=== PATIENT | male | born 1955 | race Caucasian/White ===

== ENCOUNTER 2017-01-06 00:21 | Inpatient (IN) | payer OTHER ==
[2017-01-06] VITALS (9 sets, daily range): BP systolic 121–169; BP diastolic 72–97; PULSE 89–105; TEMP 36.5–37.1; O2SAT 89–96; Ht 172.7 cm; Wt 75.6 kg
[~2017-01-06] VITALS: Ht 172.7 cm; Wt 75.6 kg
--- NOTE | 2017-01-06 00:33 | EMERGENCY ROOM VISIT NOTE ---
History Report prepared by Sarah Beth: Gabby Valverde Under the Supervision of: Kedar WiseO. First contact with patient: 00:24 Stated Complaint: RESP DISTRESS History of Present Illness The patient is a 61 year old male who presents to the Emergency Room with complaints of respiratory distress beginning shortly prior to arrival. Per EMS, the patient had 125 mg of Solu-Medrol and 2 nebulizer treatments. The patient reports that beginning 2 days ago, he had a scratchy throat and thought that he was coming down with a cold. He states that he also had a fever and a productive cough. He reports that he is a smoker and that he does not wear oxygen at home. The patient denies having a history of pneumonia and heart and kidney problems. Pt denies headache, change in vision, chest pain, nausea, vomiting, diarrhea, pain with urination, and melena. Source of History: patient Onset: shortly prior to arrival Position: other (global) Quality: other (respiratory distress ) Associated Symptoms: + fevers, + cough (productive), + chest pain, No headache, No melena, No diarrhea, No urinary symptoms Review of Systems See HPI for pertinent positives & negatives. A total of 10 systems reviewed and were otherwise negative. Past Medical & Surgical Medical Problems: (1) Respiratory failure, acute No pertinent medical history stated. Family History No pertinent family history stated. Social History Smoking Status: Current Every Day Smoker Current/Historical Medications Scheduled Doxycycline Hyclate (Doxycycline Hyclate), 100 MG PO BID Lisinopril (Lisinopril), 2.5 MG PO QAM Prednisone Tab (Prednisone), 10 MG PO UD Tiotropium [place] (Spiriva Handihaler), 2 PUFFS INH DAILY Scheduled PRN Albuterol Hfa (Ventolin Hfa), 2-4 PUFFS INH Q6H PRN for SOB/Wheezing Allergies Coded Allergies: No Known Allergies (Unverified , 01/06/17) Physical Exam Vital Signs Date Time Temp Pulse Resp B/P (MAP) Pulse Ox O2 Delivery O2 Flow Rate FiO2 01/06/17 01:41 94 21 94 Nasal Cannula 3.0 01/06/17 01:31 159/75 01/06/17 01:21 92 14 96 Nebulizer 5.0 01/06/17 01:12 156/82 01/06/17 01:00 93 Nasal Cannula 3.0 01/06/17 00:51 95 17 93 Nasal Cannula 2.0 01/06/17 00:36 91 Room Air 01/06/17 00:36 36.7 105 20 172/96 95 Nasal Cannula 2.0 01/06/17 00:35 103 01/06/17 00:35 91 Room Air 01/06/17 00:25 172/96 Physical Exam GENERAL: alert, uncomfortable appearing, well nourished, no distress, non-toxic EYE EXAM: normal conjunctiva, PERRL and EOM's grossly intact OROPHARYNX: no exudate, no erythema, lips, buccal mucosa, and tongue normal and mucous membranes are moist NECK: supple, no nuchal rigidity, no adenopathy, non-tender LUNGS: Diminished and coarse with bilateral expiratory wheezes. Normal chest wall mechanics HEART: Tachycardic, no murmurs, S1 normal and S2 normal ABDOMEN: abdomen soft, non-tender, normo-active bowel sounds, no masses, no rebound or guarding. BACK: Back is symmetrical on inspection and there is no deformity, no midline tenderness, no CVA tenderness. SKIN: no rashes and no bruising UPPER EXTREMITIES: upper extremities are grossly normal. LOWER EXTREMITIES: No pitting edema. NEURO EXAM: Normal sensorium, cranial nerves II-XII intact, normal speech, no weakness of arms, no weakness of legs. Medical Decision & Procedures ER Provider Diagnostic Interpretation: CHEST X-RAY 2 VIEWS: No cardiomegaly, no effusions, no wide mediastinum, no focal infiltrate, no pneumothorax. Laboratory Results Test 01/06/17 00:00 01/06/17 00:07 Urine Color DK YELLOW Urine Appearance CLOUDY (CLEAR) Urine pH 5.0 (4.5-7.5) Urine Specific [place] 1.023 (1.000-1.030) Urine Protein TRACE (NEG) Urine Glucose (UA) TRACE (NEG) Urine Ketones 1+ (NEG) Urine Occult Blood 1+ (NEG) Urine Nitrite NEG (NEG) Urine Bilirubin NEG (NEG) Urine Urobilinogen NEG (NEG) Urine Leukocyte Esterase SMALL (NEG) Urine WBC (Auto) >30 /hpf (0-5) Urine RBC (Auto) 5-10 /hpf (0-4) Urine Hyaline Casts (Auto) 0 /lpf (0-5) Urine Epithelial Cells (Auto) >30 /lpf (0-5) Urine Bacteria (Auto) NEG (NEG) Urine Pathogenic Casts /lpf (0) Influenza Type A (RT-PCR) Neg for Influ A (NEG) Influenza Type A Antigen Neg for Influ A (NEG) Influenza Type B Antigen Neg for Influ B (NEG) Influenza Type B (RT-PCR) Neg for Influ B (NEG) Prothrombin Time 10.5 SECONDS (9.0-12.0) Prothromb Time International Ratio 1.0 (0.9-1.1) Activated Partial Thromboplast Time 31.5 SECONDS (21.0-31.0) Partial Thromboplastin Ratio 1.2 Osmolality 284 mOsm/kg (280-300) Magnesium Level 2.2 mg/dl (1.8-2.4) Total Bilirubin 0.6 mg/dl (0.2-1) Aspartate Amino Transf (AST/SGOT) 29 U/L (15-37) Alanine Aminotransferase (ALT/SGPT) 34 U/L (12-78) Alkaline Phosphatase 48 U/L (45-117) Pro-B-Type Natriuretic Peptide 1215 pg/ml (0-900) Total Protein 8.3 gm/dl (6.4-8.2) Albumin 3.8 gm/dl (3.4-5.0) Globulin 4.5 gm/dl (2.5-4.0) Albumin/Globulin Ratio 0.8 (0.9-2) Free Thyroxine 1.02 ng/dl (0.80-1.60) Chemistry Specimen Hemolysis Date/Time Source Procedure Growth Status 01/06/17 00:00 Urine , Clean Catch Urine Culture - Final THREE TYPES OF ORGANISMS PRESENT, ALL... Complete Laboratory results per my review. Medications Administered Medications (Trade) Dose Ordered Sig/Nemo Route Start Time Stop Time Status Last Admin Dose Admin Albuterol/ Ipratropium (Duoneb) 3 ml NOW STAT INH 01/06/17 00:37 01/06/17 00:41 DC 01/06/17 01:12 3 ML Albuterol/ Ipratropium (Duoneb) 3 ml NOW STAT INH 01/06/17 01:36 01/06/17 01:37 DC 01/06/17 02:23 3 ML Levofloxacin (Levaquin / D5W) 750 mg NOW STAT IV 01/06/17 02:06 01/06/17 02:48 DC 01/06/17 03:04 750 MG ECG Indication: SOB/dyspnea Rate (beats per minute): 103 Rhythm: sinus tachycardia Findings: no acute ischemic change, no ectopy, other (normal axis, normal intervals, baseline artifact noted) ED Course 0025: The patient was evaluated in room B6. A complete history and physical exam was performed. 0037: Ordered Duoneb 3 ml INH. 0136: Ordered Duoneb 3 ml INH. 0200: The patient is moving more air and still has expiratory wheezes. I discussed results with him. 0206: Ordered Levofloxacin 750 mg IV. 0220: Upon reevaluation, the patient is resting. I discussed the findings and the treatment plan with the patient. He expresses agreement and understanding. I spoke with Dr. Sunshine of the [facility] Hospitalist Service. He will be evaluated for further management. Medical Decision Differential diagnosis: Etiologies such as infections, reactive airway disease, pneumonia, pneumothorax , COPD, CHF, cardiac ischemia, pulmonary embolism, musculoskeletal, gastrointestinal, as well as others were entertained. No evidence of overt CHF despite elevated BNP. No evidence of ACS. More likely COPD exacerbation given tobacco history. Pt improved with nebs here, given solumedrol by EMS. VS improved. Discussed need for additional evaluation and treatment, he verbalized understanding and was agreeable. Doubt bacteremia/sepsis, started on antibiotics due to sx and leukocytosis. Doubt dissection, tamponade, effusion, pneumothorax. Medication Reconcilliation Current Medication List: was personally reviewed by me Blood Pressure Screening Patient's blood pressure: Elevated blood pressure Blood pressure disposition: Referred to PCP Consults Time Called: [phone] Consulting Physician: Dr. Sunshine-[facility] Returned Call: [phone] I reviewed the patient's case with Dr. Sunshine. He will evaluate the patient for further management. Impression Primary Impression: COPD exacerbation Additional Impression: Elevated brain natriuretic peptide (BNP) level Scribe Attestation The scribe's documentation has been prepared under my direction and personally reviewed by me in its entirety. I confirm that the note above accurately reflects all work, treatment, procedures, and medical decision making performed by me. Departure Information Dispostion Being Evaluated By Hospitalist Prescriptions Albuterol Hfa (VENTOLIN HFA) 200 Puffs/96996 Mcg Aers 2-4 PUFFS INH Q6H Y for SOB/Wheezing, #1 INHALER Prov: Boyd High MD 01/07/17 Tiotropium B[place] (Spiriva Handihaler) 5 Puff/90 Mcg Aerp 2 PUFFS INH DAILY for 30 Days, #1 INHALER 1 Refill Prov: Boyd High MD 01/07/17 Doxycycline Hyclate (Doxycycline Hyclate) 100 Mg Cap 100 MG PO BID for 5 Days, #10 CAP Prov: Boyd High MD 01/07/17 Prednisone Tab (PREDNISONE) 10 Mg Tab 10 MG PO UD for 8 Days, #13 TAB Start taking 30mg for 2 days, then 20mg for 2 days, then 10mg for 2 days, then 5mg for 2 days and stop Prov: Boyd High MD 01/07/17 Lisinopril (Lisinopril) 5 Mg Tab 2.5 MG PO QAM for 30 Days, #15 TAB Prov: Boyd High MD 01/07/17 Referrals No Doctor, Assigned (PCP) Problem Qualifiers
[2017-01-06] MEDS ORDERED: ALBUT/IPRATROP 3MG/0.5MG NEB 3 ML VIAL INH STA ×2 (00:37→01:36)
[2017-01-06 00:50] LABS: BASO % 0.2 %; BASO ABS # 0.03 K/uL (0-0.2); COMPLETE YES; HEMATOCRIT 42.9 % (42-52); IG% 0.3 %; LYMPH % 15.1 %; LYMPH ABS # 2.12 K/uL (1.2-3.4); MEAN CELL VOLUME 98.2 fL (80-100); MEAN CORPUSCULAR HEMOGLOBIN 35.7 pg (25-34); MEAN CORPUSCULAR HGB CONC 36.4 g/dl (32-36); MEAN PLATELET VOLUME 9.5 fL (7.4-10.4); MONO % 7.8 %; NEUT % 74.6 %; PLATELET COUNT 229 K/uL (130-400); RED BLOOD COUNT 4.37 M/uL (4.7-6.1); WHITE BLOOD COUNT 14.06 K/uL (4.8-10.8)
[2017-01-06 00:59] LABS: PROTHROMBIN TIME (PATIENT) 10.5 SECONDS (9.0-12.0)
[2017-01-06 01:17] LABS: ALB/GLOB RATIO 0.8 (0.9-2); ALKALINE PHOSPHATASE 48 U/L (45-117); ALT/SGPT 34 U/L (12-78); AST/SGOT 29 U/L (15-37); BLOOD UREA NITROGEN 5 mg/dl (7-18); BUN/CREATININE RATIO 5.5 (10-20); CALCIUM 9.4 mg/dl (8.5-10.1); CARBON DIOXIDE 25 mmol/L (21-32); CHLORIDE 100 mmol/L (98-107); CREATININE 0.94 mg/dl (0.60-1.40); GLUCOSE 121 mg/dl (70-99); POTASSIUM 3.8 mmol/L (3.5-5.1); SODIUM 132 mmol/L (136-145)
[2017-01-06] MEDS ORDERED: LEVAQUIN 750MG / 150ML D5W IV STA (02:06)
[2017-01-06 02:35] LABS: PARTIAL THROMBOPLASTIN RATIO 1.2
[2017-01-06] MEDS ORDERED: SODIUM CHLORIDE 0.9% 500ML 500 ML IV ONE (03:00)
[2017-01-06] MEDS ORDERED: LEVALBUTEROL/IPRATROPIUM NEB INH SCH (03:00)
[2017-01-06] MEDS ORDERED: PNEUMOCOCCAL ADMINISTRATION CHARGE ONE (03:00)
[2017-01-06] MEDS ORDERED: ONDANSETRON INJ 2 MG/ML 2 ML VIAL IV PRN (03:00)
[2017-01-06] MEDS ORDERED: NITROGLYCERIN 0.4 MG SL PER TAB CHARGE SL PRN (03:00)
[2017-01-06] MEDS ORDERED: LEVALBUTEROL/IPRATROPIUM NEB INH PRN (03:00)
[2017-01-06] MEDS ORDERED: INFLUENZA ADMINISTRATION CHARGE ONE (03:00)
[2017-01-06] MEDS ORDERED: TRAMADOL HCL 50 MG TAB PO PRN (03:00)
[2017-01-06] MEDS ORDERED: ACETAMINOPHEN 325 MG TAB PO PRN (03:00)
[2017-01-06] MEDS ORDERED: PNEUMOCOCCAL POLYSACCHARIDES 25 MCG/0.5 ML VIAL/SYR IM. ONE (03:00)
[2017-01-06] MEDS ORDERED: INFLUENZA VIRUS QUAD VACCINE 0.5 ML SYR IM. ONE (03:00)
[2017-01-06 03:04] LABS: MAGNESIUM 2.2 mg/dl (1.8-2.4)
[2017-01-06 03:13] LABS: ARTERIAL BLD GAS O2 SATURATION 96.6 % (90-95); ARTERIAL BLOOD GAS BASE EXCESS -0.6 mEq/L (-9-1.8); ARTERIAL BLOOD GAS HCO3 23 mmol/L (19-24); ARTERIAL BLOOD GAS PO2 84 mm/Hg (80-95); ARTERIAL BLOOD GAS pH 7.45 (7.35-7.45)
[2017-01-06 03:19] LABS: ALLEN TEST POS (POS); O2 ADMINISTRATION 5 L
--- NOTE | 2017-01-06 03:42 | HISTORY & PHYSICAL EXAMINATION ---
DATE OF ADMISSION: 01/06/2017 PRIMARY CARE DOCTOR: None. CHIEF COMPLAINT: Shortness of breath. HISTORY OF PRESENT ILLNESS: History obtained from patient and ER physician. Medical history significant for borderline hypertension as per patient, ongoing tobacco abuse. Patient moved back to [place] in 2015. He was in [place], [place] for about 20 years prior. Few days history of nasal congestion, scratchy throat, cough productive of green sputum. Denies aspiration, fever at home, increasing shortness of breath. No chest pain. Denies fluid retention. Of note, shortness of breath on exertion, in the last few months. EMS gave patient Solu-Medrol for possible COPD exacerbation on route to the hospital. At the Emergency Room, patient received Levaquin and breathing treatments. MEDICAL HISTORY: As above. History of confinement for flu related illness in [place] about 20 years ago. Outpatient lung function tests not so normal as per patient. SURGICAL HISTORY: Cataract surgery. HOME MEDICATIONS: None. ALLERGIES: No known drug allergies. FAMILY HISTORY: Diabetes. PERSONAL AND SOCIAL HISTORY: 40-pack years. Occasional alcoholic beverage intake. 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 REVIEW OF SYSTEMS: As per HPI, all other ROS negative. LABORATORY DATA: Hg 15.6, hematocrit 42.9, white cell count 14, platelets 229. Sodium 131, chloride 100, CO2 25, BUN 5, creatinine 0.8, glucose 121. Chest x-ray as per my interpretation, hyperinflation, prominent pulm vasculature. EKG as per interpretation sinus tachycardia, LAE, no ischemia ASSESSMENT: 1. Acute hypoxemic failure secondary to complicated bronchitis, possible exacerbation of undiagnosed chronic obstructive pulmonary disease, ongoing tobacco abuse 2. possible sepsis 2 to above 3. borderline hypertension as per patient likely chronic with LAE on on EKG. PLAN: PCU supplemental O2 baseline ABG CS. Check lactic acid. Doxycycline, nebs, steroids Pulmonary consult, respiratory failure. Nicotine patch TTE RE Shortness of breath. ro pulmonary hypertension Initiate low dose APURVA inhibitor for hypertension Nicotine patch. DVT prophylaxis Lovenox subQ. Full code. MTDD
[2017-01-06] MEDS ORDERED: DOXYCYCLINE IV 100 MG in DEXTROSE 5% 100ML 100 ML IV ONE (04:30)
[2017-01-06] MEDS ORDERED: LEVALBUTEROL 1.25MG/0.5ML NEB INH PRN (04:45)
[2017-01-06] MEDS ORDERED: IPRATROPIUM BROMIDE NEB SOLN 0.02% 2.5 ML VIAL INH PRN (04:45)
[2017-01-06] MEDS ORDERED: LISINOPRIL 2.5 MG TAB PO ONE ×2 (05:22→14:00)
[2017-01-06] MEDS: ENOXAPARIN 40 MG/0.4 ML SYR SC SCH (06:12)
--- NOTE | 2017-01-06 06:43 | DIAGNOSTIC IMAGING REPORT ---
CHEST ONE VIEW PORTABLE CLINICAL HISTORY: Shortness of breath COMPARISON STUDY: No previous studies for comparison. FINDINGS: The patient appears hyperinflated. There is no focal pulmonary consolidation. There is no failure. There are no pleural effusions.[ IMPRESSION: Hyperinflation. No evidence of focal pulmonary consolidation. Electronically signed by: Alejandro Taylor M.D. 01/06/2017 6:42 AM Dictated Date/Time: 01/06/2017 6:41 AM
[2017-01-06] MEDS: IPRATROPIUM BROMIDE NEB SOLN 0.02% 2.5 ML VIAL INH SCH ×3 (07:27→19:08)
[2017-01-06] MEDS: LEVALBUTEROL 1.25MG/0.5ML NEB INH SCH ×3 (07:27→19:08)
[2017-01-06] MEDS: NICOTINE 21 MG/24 HR TDSY TD SCH (07:54)
[2017-01-06 08:35] LABS: SODIUM 133 mmol/L (136-145)
[2017-01-06 08:35] LABS: INFLUENZA A PCR Neg for Influ A (NEG); INFLUENZA B PCR Neg for Influ B (NEG)
--- NOTE | 2017-01-06 10:02 | Pulmonary Consultation ---
History General Date of Service: Jan 06, 2017. Stated Complaint: Respiratory Failure, Acute HPI The patient is a 61 year old male who presents to [facility] with complaints of Respiratory Failure, Acute. The patient's primary care provider is No Doctor, Assigned. Mr. Romero is a 61-year-old male who presented to the ER with complaints of respiratory distress the patient prior to arrival. EMS was called and patient was given IV Solu-Medrol and 2 nebulizer treatments. He states he states that his symptoms started 2 days ago which initially started as a scratchy throat. He thought that he was having upper respiratory symptoms like a "cold", and was associated with the subjective fever, productive cough with yellowish sputum, increased shortness of breath and dyspnea on exertion. He states that he did recently visit his parents in [facility] and drove about [address] he visited them in [place]. He mowed the grass at the family property and felt his chest felt different after that. He denies any hemoptysis or chest pain. He does admit to pleuritic chest pain with coughing. He denies any PND, orthopnea or lower extremity edema swelling. He does admit to being more short of breath over the last several months associated with mild dyspnea on exertion. He denies sick contacts. He is is a active current smoker. He denies any history of COPD the past and has no respiratory limitations. He does not see a rug scratcher and is not on any inhaled corticosteroids and bronchodilators. He denies daytime somnolence or increased lethargy. He denies any significant weight gain or fatigue. Vital signs on admission showed a temperature 36.7, pulse of 105, respiratory rate of 20, blood pressure 172/96, pulse ox on room air was 91 which improved to 95 with 2 L nasal cannula. Laboratory data reviewed. His white blood count 14, hemoglobin of 15, platelet count of 229 (neutrophils 74, lymphocytes 15.1). Chemistry shows sodium of 132 , potassium 3.8, chloride 100, carbon dioxide 25, BUN 5, creatinine 0.94, glucose 121, calcium 9.4, mag 2.2, total bili 0.6, AST 29, ALC 34, and alkaline phosphatase 48. His troponin less than 0.015, BNP 1215, total protein 8.3, albumin 3.8. His TSH is 8.3, free T4 102. PT of 10.5, INR 1, PTT of 31.5. Chest x-ray was done and showed hyperinflation with no focal infiltrates.Blood cultures were sent and are pending. Sputum culture ordered and pending. Influenza A and B serology were negative. In the ER he received albuterol/ipratropium nebulizer 2, Levaquin 750 mg IV influenza as well as pneumococcal vaccine. He was admitted for COPD exacerbation. Historian: patient Past Medical History Past Medical History: No significant past medical history. Past Surgical History: Cataract surgery Family History Family history significant for diabetes Social History His history of 40 pack years smoking tobacco. He denies any illicit drug use. 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 He lives in [place], [place] for many years. Lives independently in 2016. Hx Tobacco Use In Past Year?: Yes Smoking Status: Current Every Day Smoker Allergies Coded Allergies: No Known Allergies (Unverified , 01/06/17) Current Medications Reported Home Medications Medications Dose Route/Sig Max Daily Dose Days Date Category No Active Prescriptions or Reported Medications Rx Physical Physical Exam Vital Signs: Date Time Temp Pulse Resp B/P (MAP) Pulse Ox O2 Delivery O2 Flow Rate FiO2 01/06/17 07:48 36.9 89 20 169/79 (109) 94 Nasal Cannula 2.0 01/06/17 07:36 92 92 96 Nasal Cannula 3.0 01/06/17 04:20 37.1 95 16 169/75 92 Nasal Cannula 3.0 01/06/17 03:33 89 18 163/81 94 Nasal Cannula 3.0 01/06/17 02:26 88 17 164/85 91 Nasal Cannula 3.0 01/06/17 01:41 94 21 94 Nasal Cannula 3.0 01/06/17 01:31 159/75 01/06/17 01:21 92 14 96 Nebulizer 5.0 01/06/17 01:12 156/82 01/06/17 01:00 93 Nasal Cannula 3.0 01/06/17 00:51 95 17 93 Nasal Cannula 2.0 01/06/17 00:36 91 Room Air 01/06/17 00:36 36.7 105 20 172/96 95 Nasal Cannula 2.0 01/06/17 00:35 103 01/06/17 00:35 91 Room Air 01/06/17 00:25 172/96 General Appearance: NO APPARENT DISTRESS, uncomfortable, moderate distress Head: NORMOCEPHALIC, ATRAUMATIC Eyes: PERRLA, NO DISCHARGE, other (right eye protruberant) ENT: NORMAL MOUTH EXAM (overall.) Neck: NORMAL RANGE OF MOTION, NO TENDERNESS, TRACHEA MIDLINE, NO STRIDOR, SUPPLE, NO THYROMEGALY, NO LYMPHADENOPATHY Respiratory: NO RESPIRATORY DISTRESS (speaking in full sentences), wheezing ( prolonged expiratory phase) Cardiovasular: REGULAR RATE/RHYTHM, NORMAL S1S2, NORMAL PERIPHERAL PULSES Abdomen: NON TENDER, NORMAL BOWEL SOUNDS, NO REBOUND Back: NORMAL INSPECTION Upper Extremities: NO EDEMA, NO DEFORMITY, NORMAL ROM (thank you), other (no clubbing or cyanosis) Lower Extremities: NO EDEMA, NO DEFORMITY, NORMAL ROM Neuro: ALERT, ORIENTED x 3, NORMAL MOTOR EXAM, NORMAL SENSATION, NORMAL CEREBELLAR EXAM, NORMAL SPEECH, NORMAL MEMORY Reflexes: patellar (L) Psychiatric: NORMAL AFFECT, NO SUICIDAL IDEATION, CONTRACTS FOR SAFETY Diagnostics Labs Results Past 24 Hours Test 01/06/17 00:00 01/06/17 00:07 01/06/17 02:55 01/06/17 07:43 Range/Units Influenza Type A (RT-PCR) Neg for Influ A NEG Influenza Type A Antigen Neg for Influ A NEG Influenza Type B Antigen Neg for Influ B NEG Influenza Type B (RT-PCR) Neg for Influ B NEG White Blood Count 14.06 4.8-10.8 K/uL Red Blood Count 4.37 4.7-6.1 M/uL Hemoglobin 15.6 14.0-18.0 g/dL Hematocrit 42.9 42-52 % Mean Corpuscular Volume 98.2 80-100 fL Mean Corpuscular Hemoglobin 35.7 25-34 pg Mean Corpuscular Hemoglobin Concent 36.4 32-36 g/dl Platelet Count 229 130-400 K/uL Mean Platelet Volume 9.5 7.4-10.4 fL Neutrophils (%) (Auto) 74.6 % Lymphocytes (%) (Auto) 15.1 % Monocytes (%) (Auto) 7.8 % Eosinophils (%) (Auto) 2.0 % Basophils (%) (Auto) 0.2 % Neutrophils # (Auto) 10.49 1.4-6.5 K/uL Lymphocytes # (Auto) 2.12 1.2-3.4 K/uL Monocytes # (Auto) 1.10 0.11-0.59 K/uL Eosinophils # (Auto) 0.28 0-0.5 K/uL Basophils # (Auto) 0.03 0-0.2 K/uL RDW Standard Deviation 43.2 36.4-46.3 fL RDW Coefficient of Variation 12.0 11.5-14.5 % Immature Granulocyte % (Auto) 0.3 % Immature Granulocyte # (Auto) 0.04 0.00-0.02 K/uL Prothrombin Time 10.5 9.0-12.0 SECONDS Prothromb Time International Ratio 1.0 0.9-1.1 Activated Partial Thromboplast Time 31.5 21.0-31.0 SECONDS Partial Thromboplastin Ratio 1.2 Sodium Level 132 133 136-145 mmol/L Potassium Level 3.8 3.5-5.1 mmol/L Chloride Level 100 98-107 mmol/L Carbon Dioxide Level 25 21-32 mmol/L Anion Gap 7.0 3-11 mmol/L Blood Urea Nitrogen 5 7-18 mg/dl Creatinine 0.94 0.60-1.40 mg/dl Est Creatinine Clear Calc Drug Dose 79.8 ml/min Estimated GFR () 101.0 Estimated GFR (Non- 87.2 BUN/Creatinine Ratio 5.5 10-20 Random Glucose 121 70-99 mg/dl Osmolality 284 280-300 mOsm/kg Calcium Level 9.4 8.5-10.1 mg/dl Magnesium Level 2.2 1.8-2.4 mg/dl Total Bilirubin 0.6 0.2-1 mg/dl Aspartate Amino Transf (AST/SGOT) 29 15-37 U/L Alanine Aminotransferase (ALT/SGPT) 34 12-78 U/L Alkaline Phosphatase 48 45-117 U/L Troponin I < 0.015 < 0.015 0-0.045 ng/ml Pro-B-Type Natriuretic Peptide 1215 0-900 pg/ml Total Protein 8.3 6.4-8.2 gm/dl Albumin 3.8 3.4-5.0 gm/dl Globulin 4.5 2.5-4.0 gm/dl Albumin/Globulin Ratio 0.8 0.9-2 Thyroid Stimulating Hormone (TSH) 8.300 0.300-4.500 uIu/ml Free Thyroxine 1.02 0.80-1.60 ng/dl Chemistry Specimen Hemolysis Arterial Blood pH 7.45 7.35-7.45 Arterial Blood Partial Pressure CO2 33 35-46 mmHg Arterial Blood Partial Pressure O2 84 80-95 mm/Hg Arterial Blood HCO3 23 19-24 mmol/L Arterial Blood Oxygen Saturation 96.6 90-95 % Arterial Blood Base Excess -0.6 -9-1.8 mEq/L Arterial Blood Gas Delivery 5 L Kalen Test POS POS Lactic Acid Level 1.4 0.4-2.0 mmol/L Microbiology Results 01/06/17 Blood Culture, Received Pending 01/06/17 Blood Culture, Received Pending Diagnostic Radiology Chest x-ray 01/06/2017 FINDINGS: The patient appears hyperinflated. There is no focal pulmonary consolidation. There is no failure. There are no pleural effusions.[ IMPRESSION: Hyperinflation. No evidence of focal pulmonary consolidation. EKG There are no previous EKGs for comparison. Sinus tachycardia 105 bpm with a short CO interval with nonspecific ST abnormalities. Impression Assessment and Plan Acute bronchitis Tobacco use disorder Hypertension Hypothyroidism Patient is an active smoker. Due to normal chest x-ray report is acute bronchitis. He doesn't have an official diagnosis of COPD however his lungs are hyperinflated on chest imaging suggestive of underlying obstructive lung disease. He does have elevated white count associated shortness of breath and cough. This is most likely a viral infection, but bacterial etiology should be ruled out. Continue with antibiotics. We'll follow up blood cultures as well as sputum cultures. He also has normal BNP. In the meantime, continue with his supplemental oxygen. Maintain SaO2 bwt 88- 92%, PaO2 of 60. If he should further decompensate he may need a trial of BiPAP. Continue with corticosteroids Continue with bronchodilator therapy and flutter valve. I would obtain a TTE to evaluate his heart function. Smoking cessation offered. Continue nicotine patch. Obtain bilateral lower extremity DVTs. Plan discharge patient should be followed up with pulmonary as an outpatient. To obtain official PFTs and enrollment into the lung cancer screening program. I would discharge him home on steroid taper, Spiriva and albuterol. Patient also has hypothyroidism which appears to be undiagnosed at this time. He does have proptosis of right eye. I would recommend starting him on supplemental levothyroxine therapy per primary care team. Appreciate the consult.
[2017-01-06] MEDS ORDERED: PERFLUTREN LIPID MICROSPHERE (DEFINITY) IV ONE (10:48)
[2017-01-06 11:09] LABS: URINE APPEARANCE CLOUDY (CLEAR); URINE BILIRUBIN NEG (NEG); URINE COLOR DK YELLOW; URINE EPITHELIAL CELL AUTO >30 /lpf (0-5); URINE NITRITE NEG (NEG); URINE SPECIFIC GRAVITY 1.023 (1.000-1.030); UROBILINOGEN NEG (NEG); ZZUR CULT IF INDIC CLEAN CATCH YES
[2017-01-06 11:17] LABS: MANUAL MICROSCOPIC REQUIRED? NO; REVIEW REQ? YES
--- NOTE | 2017-01-06 11:35 | Progress Note ---
Internal Med Progress Note Date of Service: Jan 06, 2017. Provider Documentation: SUBJECTIVE: Seen and examined at bedside Less SOB Has intermittent cough Denies CP, orthopnea, PND, pedal edema Offers no other complaints OBJECTIVE: Vital Signs-as noted below Physical Exam: General Appearance:Moderately built and nourished, no apparent distress Head: normocephalic, Atraumatic Eyes: normal inspection, EOMI, PERRL Neck: supple, Trachea midline Respiratory/Chest: Decreased breath sounds, mild expiratory wheezes Cardiovascular: S1, S2, No murmur Abdomen/GI:Soft, Non tender, Bowel sounds present Extremities/Musculoskelatal:normal inspection, no edema Neurologic/Psych:AAOX3, grossly no focal neurological deficits Skin: normal color, warm Lab data as noted below. ASSESSMENT & PLAN: Acute Bronchitis Could have underling COPD Ongoing Tobacco use CXR: no consolidation Continue Abx, prednisone, bronchodilators ECHO, Venous Doppler pending Needs PFTs as outpatient Appreciate Pulmonary Input Oxygen support PRN Blood/Septum cultures HTN: Continue Lisinopril Monitor Asymptomatic Ongoing Tobacco use: Nicotine patch residence counselor to quit smoking ? Subclinical Hypothyroidism: TSH: 8.3 Free T4: normal Recheck TSH in AM DVT px: Lovenox subQ. Code Status: Full code Vital Signs: Date Time Temp Pulse Resp B/P (MAP) Pulse Ox O2 Delivery O2 Flow Rate FiO2 01/06/17 12:00 Nasal Cannula 3.0 01/06/17 11:45 37.0 90 18 150/97 (114) 96 01/06/17 08:00 Nasal Cannula 3.0 01/06/17 07:48 36.9 89 20 169/79 (109) 94 Nasal Cannula 2.0 01/06/17 07:36 92 92 96 Nasal Cannula 3.0 01/06/17 04:20 37.1 95 16 169/75 92 Nasal Cannula 3.0 01/06/17 03:33 89 18 163/81 94 Nasal Cannula 3.0 01/06/17 02:26 88 17 164/85 91 Nasal Cannula 3.0 01/06/17 01:41 94 21 94 Nasal Cannula 3.0 01/06/17 01:31 159/75 01/06/17 01:21 92 14 96 Nebulizer 5.0 01/06/17 01:12 156/82 01/06/17 01:00 93 Nasal Cannula 3.0 01/06/17 00:51 95 17 93 Nasal Cannula 2.0 01/06/17 00:36 91 Room Air 01/06/17 00:36 36.7 105 20 172/96 95 Nasal Cannula 2.0 01/06/17 00:35 103 01/06/17 00:35 91 Room Air 01/06/17 00:25 172/96 Lab Results: Results Past 24 Hours Test 01/06/17 00:00 01/06/17 00:07 01/06/17 02:55 01/06/17 07:43 Range/Units Urine Color DK YELLOW Urine Appearance CLOUDY CLEAR Urine pH 5.0 4.5-7.5 Urine Specific [place] 1.023 1.000-1.030 Urine Protein TRACE NEG Urine Glucose (UA) TRACE NEG Urine Ketones 1+ NEG Urine Occult Blood 1+ NEG Urine Nitrite NEG NEG Urine Bilirubin NEG NEG Urine Urobilinogen NEG NEG Urine Leukocyte Esterase SMALL NEG Urine WBC (Auto) >30 0-5 /hpf Urine RBC (Auto) 5-10 0-4 /hpf Urine Hyaline Casts (Auto) 0 0-5 /lpf Urine Epithelial Cells (Auto) >30 0-5 /lpf Urine Bacteria (Auto) NEG NEG Urine Pathogenic Casts 0 /lpf Influenza Type A (RT-PCR) Neg for Influ A NEG Influenza Type A Antigen Neg for Influ A NEG Influenza Type B Antigen Neg for Influ B NEG Influenza Type B (RT-PCR) Neg for Influ B NEG White Blood Count 14.06 4.8-10.8 K/uL Red Blood Count 4.37 4.7-6.1 M/uL Hemoglobin 15.6 14.0-18.0 g/dL Hematocrit 42.9 42-52 % Mean Corpuscular Volume 98.2 80-100 fL Mean Corpuscular Hemoglobin 35.7 25-34 pg Mean Corpuscular Hemoglobin Concent 36.4 32-36 g/dl Platelet Count 229 130-400 K/uL Mean Platelet Volume 9.5 7.4-10.4 fL Neutrophils (%) (Auto) 74.6 % Lymphocytes (%) (Auto) 15.1 % Monocytes (%) (Auto) 7.8 % Eosinophils (%) (Auto) 2.0 % Basophils (%) (Auto) 0.2 % Neutrophils # (Auto) 10.49 1.4-6.5 K/uL Lymphocytes # (Auto) 2.12 1.2-3.4 K/uL Monocytes # (Auto) 1.10 0.11-0.59 K/uL Eosinophils # (Auto) 0.28 0-0.5 K/uL Basophils # (Auto) 0.03 0-0.2 K/uL RDW Standard Deviation 43.2 36.4-46.3 fL RDW Coefficient of Variation 12.0 11.5-14.5 % Immature Granulocyte % (Auto) 0.3 % Immature Granulocyte # (Auto) 0.04 0.00-0.02 K/uL Prothrombin Time 10.5 9.0-12.0 SECONDS Prothromb Time International Ratio 1.0 0.9-1.1 Activated Partial Thromboplast Time 31.5 21.0-31.0 SECONDS Partial Thromboplastin Ratio 1.2 Sodium Level 132 133 136-145 mmol/L Potassium Level 3.8 3.5-5.1 mmol/L Chloride Level 100 98-107 mmol/L Carbon Dioxide Level 25 21-32 mmol/L Anion Gap 7.0 3-11 mmol/L Blood Urea Nitrogen 5 7-18 mg/dl Creatinine 0.94 0.60-1.40 mg/dl Est Creatinine Clear Calc Drug Dose 79.8 ml/min Estimated GFR () 101.0 Estimated GFR (Non- 87.2 BUN/Creatinine Ratio 5.5 10-20 Random Glucose 121 70-99 mg/dl Osmolality 284 280-300 mOsm/kg Calcium Level 9.4 8.5-10.1 mg/dl Magnesium Level 2.2 1.8-2.4 mg/dl Total Bilirubin 0.6 0.2-1 mg/dl Aspartate Amino Transf (AST/SGOT) 29 15-37 U/L Alanine Aminotransferase (ALT/SGPT) 34 12-78 U/L Alkaline Phosphatase 48 45-117 U/L Troponin I < 0.015 < 0.015 0-0.045 ng/ml Pro-B-Type Natriuretic Peptide 1215 0-900 pg/ml Total Protein 8.3 6.4-8.2 gm/dl Albumin 3.8 3.4-5.0 gm/dl Globulin 4.5 2.5-4.0 gm/dl Albumin/Globulin Ratio 0.8 0.9-2 Thyroid Stimulating Hormone (TSH) 8.300 0.300-4.500 uIu/ml Free Thyroxine 1.02 0.80-1.60 ng/dl Chemistry Specimen Hemolysis Arterial Blood pH 7.45 7.35-7.45 Arterial Blood Partial Pressure CO2 33 35-46 mmHg Arterial Blood Partial Pressure O2 84 80-95 mm/Hg Arterial Blood HCO3 23 19-24 mmol/L Arterial Blood Oxygen Saturation 96.6 90-95 % Arterial Blood Base Excess -0.6 -9-1.8 mEq/L Arterial Blood Gas Delivery 5 L [place] Test POS POS Lactic Acid Level 1.4 0.4-2.0 mmol/L Hepatitis C Antibody Screen NEG NEG Microbiology Results 01/06/17 Blood Culture, Received Pending 01/06/17 Blood Culture, Received Pending 01/06/17 Gram Stain, Received Pending 01/06/17 Sputum Culture, Received Pending 01/06/17 Urine Culture, Received Pending
--- NOTE | 2017-01-06 13:26 | DIAGNOSTIC IMAGING REPORT ---
ULTRASOUND VENOUS DOPPLER LWR EXT BILA CLINICAL HISTORY: Leg swelling and shortness of breath COMPARISON STUDY: No previous studies for comparison. FINDINGS: Real-time and color flow Doppler imaging were performed. Flow was seen within the femoral, popliteal and calf veins with no intraluminal thrombus demonstrated. The saphenous vein is patent. IMPRESSION: No evidence of lower extremity DVT. Electronically signed by: Alejandro Taylor M.D. 01/06/2017 1:25 PM Dictated Date/Time: 01/06/2017 1:25 PM
--- NOTE | 2017-01-06 14:20 | ECHOCARDIOGRAM REPORT ---
*NOTICE TO RECEIVING [employer]Y This information is strictly Confidential and protected under [place] law. [place] law prohibits you from making any further disclosure of this information unless further disclosure is expressly permitted by the written consent of the person to whom it pertains or is authorized by law. A general authorization for the release of medical or other information is not sufficient for this purpose. Hospital accepts no responsibility if the information is made available to any other person, INCLUDING THE PATIENT. Interpretation Summary * Name: LAMONT HAN Study Date: 01/06/2017 10:29 AM BP: 169/75 mmHg * Patient Location: C.2T\S\S244\S\1 HR: 95 * : 1955 (M/d/yyyy) Gender: Male Height: 68 in * Age: 61 yrs Ethnicity: CA Weight: 171 lb * Ordering Physician: Johan Sunshine * Performed By: Armida Bello * * Reason For Study: SOB * BSA: 1.9 m2 * Grossly normal valvular structure and function. * -- Conclusions -- * The left ventricle is normal in size. * Left ventricular systolic function is normal. * Ejection Fraction = >70 %. * The right ventricular systolic function is normal. * The left atrial size is normal. * Right atrial size is normal.No significnat valvular pathology. * Grossly normal valvular structure and function. Procedure Details * A complete two-dimensional transthoracic echocardiogram was performed (2D, M-mode, Doppler and color flow Doppler). * The study was technically limited. * The study was technically difficult. * Limited views were obtained. * There were technical limitations due to patient'sPoor acoustic windows secondary to severe lung disease. * A contrast injection of Definity was performed to improve assessment of LV function. * Contrast was injected into an intravenous site in the left arm. * One vial of Definity ultrasound contrast was diluted in normal saline to a total volume of 10 ml. A total of '2' ml of solution was administered during imaging. * Lot # [id number] of Definity utilized for procedure. * Expiration date 02/07. Left Ventricle * The left ventricle is normal in size. * There is normal left ventricular wall thickness. * Ejection Fraction = >70 %. * Left ventricular systolic function is normal. * The left ventricular wall motion is normal at rest. Right Ventricle * The right ventricle is normal size. * The right ventricular systolic function is normal. Atria * The left atrial size is normal. * Right atrial size is normal. * No ASD detected; PFO is not assessed. Mitral Valve * The mitral valve anatomy is normal. * Significant mitral regurgitation is absent. Tricuspid Valve * The tricuspid valve anatomy is normal. * Significant tricuspid regurgitation is absent. Aortic Valve * The aortic valve is not well visualized. * No hemodynamically significant valvular aortic stenosis. * There is no significant aortic regurgitation. Pericardium/Pleural * Trivial pericardial effusion. MMode 2D Measurements and Calculations IVSd 1.5 cm IVSs 1.5 cm LVIDd 3.4 cm LVIDs 2.0 cm LVPWd 0.80 cm LVPWs 1.8 cm IVS/LVPW 1.9 FS 42.2 % EDV(Teich) 48.2 ml ESV(Teich) 12.4 ml EF(Teich) 74.3 % EDV(cubed) 40.1 ml ESV(cubed) 7.7 ml EF(cubed) 80.7 % % IVS thick 3.8 % % LVPW thick 128.2 % LV mass(C)d 120.9 grams LV mass(C)dI 63.2 grams/m\S\2 LV mass(C)s 119.8 grams LV mass(C)sI 62.6 grams/m\S\2 SV(Teich) 35.8 ml SI(Teich) 18.7 ml/m\S\2 SV(cubed) 32.3 ml SI(cubed) 16.9 ml/m\S\2 LVAd ap4 34.5 cm\S\2 LVLd ap4 8.9 cm EDV(MOD-sp4) 109.5 ml EDV(sp4-el) 113.9 ml LVAs ap4 14.5 cm\S\2 LVLs ap4 6.9 cm ESV(MOD-sp4) 24.8 ml ESV(sp4-el) 25.8 ml EF(MOD-sp4) 77.4 % EF(sp4-el) 77.4 % LVAd ap2 27.1 cm\S\2 LVLd ap2 8.4 cm EDV(MOD-sp2) 71.8 ml EDV(sp2-el) 74.6 ml LVAs ap2 11.7 cm\S\2 LVLs ap2 6.4 cm ESV(MOD-sp2) 17.9 ml ESV(sp2-el) 18.2 ml EF(MOD-sp2) 75.0 % EF(sp2-el) 75.6 % LVLd %diff -6.21 % EDV(MOD-bp) 91.1 ml LVLs %diff -7.92 % ESV(MOD-bp) 21.6 ml EF(MOD-bp) 76.3 % SV(MOD-sp4) 84.8 ml SI(MOD-sp4) 44.3 ml/m\S\2 SV(MOD-sp2) 53.9 ml SI(MOD-sp2) 28.2 ml/m\S\2 SV(MOD-bp) 69.5 ml SI(MOD-bp) 36.3 ml/m\S\2 SV(sp4-el) 88.1 ml SI(sp4-el) 46.1 ml/m\S\2 SV(sp2-el) 56.4 ml SI(sp2-el) 29.5 ml/m\S\2 Doppler Measurements and Calculations MV E max austin 68.3 cm/sec MV A max austin 91.3 cm/sec MV E/A 0.75 MV dec time 0.25 sec Ao V2 max 182.0 cm/sec Ao max PG 13.3 mmHg Ao max PG (full) 0.87 mmHg LV V1 max PG 12.4 mmHg LV V1 mean PG 4.4 mmHg LV V1 max 176.0 cm/sec LV V1 mean 92.0 cm/sec LV V1 VTI 29.7 cm PA V2 max 57.7 cm/sec PA max PG 1.3 mmHg TR max austin 142.4 cm/sec
[2017-01-06] MEDS: DOXYCYCLINE IV 100 MG in DEXTROSE 5% 100ML 100 ML IV SCH (15:24)
[2017-01-07] MEDS: LEVALBUTEROL 1.25MG/0.5ML NEB INH SCH ×2 (01:53→07:14)
[2017-01-07] MEDS: IPRATROPIUM BROMIDE NEB SOLN 0.02% 2.5 ML VIAL INH SCH ×2 (01:53→07:14)
[2017-01-07 01:54] VITALS: PULSE 83; O2SAT 98
[2017-01-07] MEDS: DOXYCYCLINE IV 100 MG in DEXTROSE 5% 100ML 100 ML IV SCH (04:00)
[2017-01-07 04:01] VITALS: BP 138/74; PULSE 87; TEMP 36.7; O2SAT 97
[2017-01-07] MEDS: ENOXAPARIN 40 MG/0.4 ML SYR SC SCH (06:09)
[2017-01-07 07:11] VITALS: BP 147/79; PULSE 74; TEMP 36.7; O2SAT 95
[2017-01-07 07:14] VITALS: PULSE 75; O2SAT 95
[2017-01-07 07:15] LABS: BASO % 0.1 %; BASO ABS # 0.01 K/uL (0-0.2); COMPLETE YES; EOS % 0.2 %; HEMATOCRIT 39.8 % (42-52); IG% 0.2 %; LYMPH % 16.7 %; LYMPH ABS # 2.88 K/uL (1.2-3.4); MEAN CELL VOLUME 98.5 fL (80-100); MEAN CORPUSCULAR HEMOGLOBIN 32.7 pg (25-34); MEAN CORPUSCULAR HGB CONC 33.2 g/dl (32-36); MEAN PLATELET VOLUME 9.3 fL (7.4-10.4); MONO % 9.1 %; NEUT % 73.7 %; PLATELET COUNT 240 K/uL (130-400); RED BLOOD COUNT 4.04 M/uL (4.7-6.1)
[2017-01-07 07:56] LABS: BUN/CREATININE RATIO 16.1 (10-20); CREATININE 0.87 mg/dl (0.60-1.40); POTASSIUM 3.4 mmol/L (3.5-5.1)
[2017-01-07 08:13] LABS: THYROID STIMULATING HORMONE 6.54 uIu/ml (0.300-4.500)
[2017-01-07] MEDS ORDERED: LISINOPRIL 2.5 MG TAB PO SCH (09:00)
[2017-01-07] MEDS ORDERED: LISINOPRIL 5 MG TAB PO SCH (09:00)
[2017-01-07] MEDS: NICOTINE 21 MG/24 HR TDSY TD SCH (09:13)
--- NOTE | 2017-01-07 09:50 | Pulmonology Progress Note ---
Pulmonary Progress Note Date of Service Jan 07, 2017. Attending Dr. Meadows Subjective Patient seen and examined. Patient states that he is feeling a little bit better today. He has less cough and less productive sputum. Still has mild intermittent wheezing at times. Objective VS reviewed. T 36.7, P 138/74-23589, P 74-87, RR 16-20, SaO2 95-98% on 1-3L NC. General Appearance: NO APPARENT DISTRESS, Head: NORMOCEPHALIC, ATRAUMATIC Eyes: PERRLA, NO DISCHARGE, other (right eye protuberant) ENT: NORMAL MOUTH EXAM (overall.) Neck: NORMAL RANGE OF MOTION, NO TENDERNESS, TRACHEA MIDLINE, NO STRIDOR, SUPPLE, NO THYROMEGALY, NO LYMPHADENOPATHY Respiratory: NO RESPIRATORY DISTRESS (speaking in full sentences), wheezing ( prolonged expiratory phase) Cardiovascular: REGULAR RATE/RHYTHM, NORMAL S1S2, NORMAL PERIPHERAL PULSES Abdomen: NON TENDER, NORMAL BOWEL SOUNDS, NO REBOUND Back: NORMAL INSPECTION Upper Extremities: NO EDEMA, NO DEFORMITY, NORMAL ROM , other (no clubbing or cyanosis) Lower Extremities: NO EDEMA, NO DEFORMITY, NORMAL ROM Neuro: ALERT, ORIENTED x 3, NORMAL MOTOR EXAM, NORMAL SENSATION, NORMAL CEREBELLAR EXAM, NORMAL SPEECH, NORMAL MEMORY Psychiatric: NORMAL AFFECT, NO SUICIDAL IDEATION, CONTRACTS FOR SAFETY Laboratory data reviewed WBC 17, Hgb 13, plt 240. Na 134, K 3.4, TSH 6.54 Blood cultures 01/06/2017--No growth to date Sputum culture 01/06/2017--pending Images viewed and reviewed by ne Venous Doppler Study 01/06/2017 ULTRASOUND VENOUS DOPPLER LWR EXT BILA CLINICAL HISTORY: Leg swelling and shortness of breath COMPARISON STUDY: No previous studies for comparison. FINDINGS: Real-time and color flow Doppler imaging were performed. Flow was seen within the femoral, popliteal and calf veins with no intraluminal thrombus demonstrated. The saphenous vein is patent. IMPRESSION: No evidence of lower extremity DVT. Medications reviewed TTE 01/06/2017 * -- Conclusions -- * The left ventricle is normal in size. * Left ventricular systolic function is normal. * Ejection Fraction = >70 %. * The right ventricular systolic function is normal. * The left atrial size is normal. * Right atrial size is normal.No significnat valvular pathology. * Grossly normal valvular structure and function. CHEST ONE VIEW PORTABLE 01/06/2017 CLINICAL HISTORY: Shortness of breath COMPARISON STUDY: No previous studies for comparison. FINDINGS: The patient appears hyperinflated. There is no focal pulmonary consolidation. There is no failure. There are no pleural effusions.[ IMPRESSION: Hyperinflation. No evidence of focal pulmonary consolidation. Assessment & Plan Acute bronchitis Tobacco use disorder Hypertension Subclinical Hypothyroidism Patient is an active smoker. Due to normal chest x-ray report is acute bronchitis. He doesn't have an official diagnosis of COPD however his lungs are hyperinflated on chest imaging suggestive of underlying obstructive lung disease. He does have elevated white count associated shortness of breath and cough. This is most likely a viral infection, but bacterial etiology should be ruled out. Continue with antibiotics. Blood cultures are negative to date. Sputum cultures are pending. He also has normal BNP. TTE shows normal cardiac function with no signs of elevated right heart pressures. LE dopplers are negative for DVT. In the meantime, continue with his supplemental oxygen. Maintain SaO2 between 88-92%, PaO2 of 60. If he should further decompensate he may need a trial of BiPAP. Continue with corticosteroids Continue with bronchodilator therapy and flutter valve. Smoking cessation counseling given. Continue nicotine patch. Plan discharge patient should be followed up with pulmonary as an outpatient. To obtain official PFTs and enrollment into the lung cancer screening program. I would discharge him home on steroid taper, Spiriva and albuterol. Subclinical hypothyroidism, electrolyte derangement management per primary team. Data Medications: Current Inpatient Medications Medications (Trade) Dose Ordered Sig/Nemo Route Start Time Stop Time Status Last Admin Dose Admin Doxycycline Hyclate 100 mg/ Dextrose 110 ml @ 50 mls/hr Q12H IV 01/06/17 16:00 01/13/17 15:59 01/07/17 04:00 50 MLS/HR Prednisone (PredniSONE TAB) 40 mg DAILY PO 01/06/17 09:00 01/11/17 08:59 01/07/17 09:13 40 MG Nicotine (Nicoderm Cq 21MG Patch) 1 patch QAM TD 01/06/17 09:00 02/05/17 08:59 01/07/17 09:13 1 PATCH Miscellaneous (Remove Nicoderm Patch) 1 ea HS N/A 01/06/17 21:00 02/05/17 20:59 01/06/17 20:58 1 EA Enoxaparin Sodium (Lovenox Inj) 40 mg Q24H SC 01/06/17 06:00 02/05/17 05:59 01/07/17 06:09 40 MG Acetaminophen (Tylenol Tab) 650 mg Q4H PRN PO 01/06/17 03:00 02/05/17 02:59 Nitroglycerin (Nitrostat Tab) 0.4 mg UD PRN SL 01/06/17 03:00 02/05/17 02:59 Ondansetron HCl (Zofran Inj) 4 mg Q6H PRN IV 01/06/17 03:00 02/05/17 02:59 Tramadol HCl (Ultram Tab) 25 mg Q6H PRN PO 01/06/17 03:00 02/05/17 02:59 Ipratropium [place] (Atrovent 0.02% 0.5MG/2.5ML Neb) 0.5 mg Q6R INH 01/06/17 09:00 02/05/17 08:59 01/07/17 07:14 0.5 MG Levalbuterol (Xopenex 1.25MG/ 0.5ML Neb) 1.25 mg Q6R INH 01/06/17 09:00 02/05/17 08:59 01/07/17 07:14 1.25 MG Ipratropium [place] (Atrovent 0.02% 0.5MG/2.5ML Neb) 0.5 mg Q4H PRN INH 01/06/17 04:45 02/05/17 04:44 Levalbuterol (Xopenex 1.25MG/ 0.5ML Neb) 1.25 mg Q4H PRN INH 01/06/17 04:45 02/05/17 04:44 Lisinopril (Zestril Tab) 5 mg QAM PO 01/07/17 09:00 02/06/17 08:59 01/07/17 09:12 5 MG Vital Signs: Date Time Temp Pulse Resp B/P (MAP) Pulse Ox O2 Delivery O2 Flow Rate FiO2 01/07/17 08:00 Nasal Cannula 3.0 01/07/17 07:14 75 18 95 Nasal Cannula 1.0 01/07/17 07:11 36.7 74 16 147/79 (101) 95 Nasal Cannula 1.0 01/07/17 04:01 36.7 87 20 138/74 (95) 97 Nasal Cannula 3.0 01/07/17 04:00 Nasal Cannula 3.0 01/07/17 01:54 83 18 98 Nasal Cannula 3.0 01/07/17 00:00 Nasal Cannula 3.0 01/06/17 23:00 36.5 91 18 142/73 (96) 95 Nasal Cannula 3.0 01/06/17 20:00 Nasal Cannula 3.0 01/06/17 19:35 36.9 105 20 121/72 (88) 93 Nasal Cannula 3.0 01/06/17 19:08 104 92 89 Nasal Cannula 3.0 01/06/17 16:08 37.1 91 20 147/80 (102) 91 Nasal Cannula 3.0 01/06/17 16:00 Nasal Cannula 3.0 01/06/17 14:40 90 92 95 Nasal Cannula 3.0 01/06/17 12:00 Nasal Cannula 3.0 01/06/17 11:45 37.0 90 18 150/97 (114) 96 Laboratory Results: Last 24 Hours Test 01/07/17 06:36 White Blood Count 17.20 K/uL Red Blood Count 4.04 M/uL Hemoglobin 13.2 g/dL Hematocrit 39.8 % Mean Corpuscular Volume 98.5 fL Mean Corpuscular Hemoglobin 32.7 pg Mean Corpuscular Hemoglobin Concent 33.2 g/dl Platelet Count 240 K/uL Mean Platelet Volume 9.3 fL Neutrophils (%) (Auto) 73.7 % Lymphocytes (%) (Auto) 16.7 % Monocytes (%) (Auto) 9.1 % Eosinophils (%) (Auto) 0.2 % Basophils (%) (Auto) 0.1 % Neutrophils # (Auto) 12.68 K/uL Lymphocytes # (Auto) 2.88 K/uL Monocytes # (Auto) 1.56 K/uL Eosinophils # (Auto) 0.03 K/uL Basophils # (Auto) 0.01 K/uL RDW Standard Deviation 44.0 fL RDW Coefficient of Variation 12.1 % Immature Granulocyte % (Auto) 0.2 % Immature Granulocyte # (Auto) 0.04 K/uL Sodium Level 134 mmol/L Potassium Level 3.4 mmol/L Chloride Level 101 mmol/L Carbon Dioxide Level 26 mmol/L Anion Gap 7.0 mmol/L Blood Urea Nitrogen 14 mg/dl Creatinine 0.87 mg/dl Est Creatinine Clear Calc Drug Dose 86.2 ml/min Estimated GFR () 108.0 Estimated GFR (Non- 93.2 BUN/Creatinine Ratio 16.1 Random Glucose 99 mg/dl Calcium Level 9.0 mg/dl Thyroid Stimulating Hormone (TSH) 6.540 uIu/ml
[2017-01-07 10:49] VITALS: BP 126/73; PULSE 95; TEMP 36.3; O2SAT 93
[2017-01-07] MEDS ORDERED: POTASSIUM CHLORIDE 10 MEQ TABCR PO ONE (11:45)
--- NOTE | 2017-01-07 12:28 | Progress Note ---
Internal Med Progress Note Date of Service: Jan 07, 2017. Provider Documentation: SUBJECTIVE: Seen and examined at bedside Feels much better Less cough Denies SOB, CP Offers no other complaints Eager to get discharged saturating well on OBJECTIVE: Vital Signs-as noted below Physical Exam: General Appearance:Moderately built and nourished, no apparent distress Head: normocephalic, Atraumatic Eyes: normal inspection, EOMI, PERRL Neck: supple, Trachea midline Respiratory/Chest: Decreased breath sounds, mild expiratory wheezes Cardiovascular: S1, S2, No murmur Abdomen/GI:Soft, Non tender, Bowel sounds present Extremities/Musculoskelatal:normal inspection, no edema Neurologic/Psych:AAOX3, grossly no focal neurological deficits Skin: normal color, warm Lab data as noted below. ASSESSMENT & PLAN: Acute Bronchitis Could have underling COPD Ongoing Tobacco use CXR: no consolidation Continue Abx, prednisone, bronchodilators ECHO:as below Venous Doppler: No DVT Needs PFTs as outpatient Appreciate Pulmonary Input Oxygen support PRN Blood/Septum cultures: Negative HTN: Continue Lisinopril Monitor Asymptomatic Ongoing Tobacco use: Nicotine patch certified alcohol and drug counselor to quit smoking ? Subclinical Hypothyroidism: TSH: 8.3>>>6.5 Free T4: normal Needs repeat Thyroid function test as outpatient DVT px: Lovenox subQ. Code Status: Full code DISPOSITION: Plan to discharge home today Follow up with on 01/10 at 10.45 AM at [facility] Office Complete the antibiotic and steroid course as prescribed Get repeat Thyroid function tests as outpatient in 4-6 weeks as advised Get Pulmonary function test and enrollment into the lung cancer screening program as outpatient Seek immediate medical attention if your symptoms reoccur or worsen Quit smoking as advised PROCEDURES: ECHO: * The left ventricle is normal in size. * Left ventricular systolic function is normal. * Ejection Fraction = >70 %. * The right ventricular systolic function is normal. * The left atrial size is normal. * Right atrial size is normal.No significnat valvular pathology. * Grossly normal valvular structure and function. Vital Signs: Date Time Temp Pulse Resp B/P (MAP) Pulse Ox O2 Delivery O2 Flow Rate FiO2 01/07/17 10:49 36.3 95 18 126/73 (90) 93 Room Air 01/07/17 08:00 Nasal Cannula 3.0 01/07/17 07:14 75 18 95 Nasal Cannula 1.0 01/07/17 07:11 36.7 74 16 147/79 (101) 95 Nasal Cannula 1.0 01/07/17 04:01 36.7 87 20 138/74 (95) 97 Nasal Cannula 3.0 01/07/17 04:00 Nasal Cannula 3.0 01/07/17 01:54 83 18 98 Nasal Cannula 3.0 01/07/17 00:00 Nasal Cannula 3.0 01/06/17 23:00 36.5 91 18 142/73 (96) 95 Nasal Cannula 3.0 01/06/17 20:00 Nasal Cannula 3.0 01/06/17 19:35 36.9 105 20 121/72 (88) 93 Nasal Cannula 3.0 01/06/17 19:08 104 92 89 Nasal Cannula 3.0 01/06/17 16:08 37.1 91 20 147/80 (102) 91 Nasal Cannula 3.0 01/06/17 16:00 Nasal Cannula 3.0 01/06/17 14:40 90 92 95 Nasal Cannula 3.0 Lab Results: Results Past 24 Hours Test 01/07/17 06:36 Range/Units White Blood Count 17.20 4.8-10.8 K/uL Red Blood Count 4.04 4.7-6.1 M/uL Hemoglobin 13.2 14.0-18.0 g/dL Hematocrit 39.8 42-52 % Mean Corpuscular Volume 98.5 80-100 fL Mean Corpuscular Hemoglobin 32.7 25-34 pg Mean Corpuscular Hemoglobin Concent 33.2 32-36 g/dl Platelet Count 240 130-400 K/uL Mean Platelet Volume 9.3 7.4-10.4 fL Neutrophils (%) (Auto) 73.7 % Lymphocytes (%) (Auto) 16.7 % Monocytes (%) (Auto) 9.1 % Eosinophils (%) (Auto) 0.2 % Basophils (%) (Auto) 0.1 % Neutrophils # (Auto) 12.68 1.4-6.5 K/uL Lymphocytes # (Auto) 2.88 1.2-3.4 K/uL Monocytes # (Auto) 1.56 0.11-0.59 K/uL Eosinophils # (Auto) 0.03 0-0.5 K/uL Basophils # (Auto) 0.01 0-0.2 K/uL RDW Standard Deviation 44.0 36.4-46.3 fL RDW Coefficient of Variation 12.1 11.5-14.5 % Immature Granulocyte % (Auto) 0.2 % Immature Granulocyte # (Auto) 0.04 0.00-0.02 K/uL Sodium Level 134 136-145 mmol/L Potassium Level 3.4 3.5-5.1 mmol/L Chloride Level 101 98-107 mmol/L Carbon Dioxide Level 26 21-32 mmol/L Anion Gap 7.0 3-11 mmol/L Blood Urea Nitrogen 14 7-18 mg/dl Creatinine 0.87 0.60-1.40 mg/dl Est Creatinine Clear Calc Drug Dose 86.2 ml/min Estimated GFR () 108.0 Estimated GFR (Non- 93.2 BUN/Creatinine Ratio 16.1 10-20 Random Glucose 99 70-99 mg/dl Calcium Level 9.0 8.5-10.1 mg/dl Thyroid Stimulating Hormone (TSH) 6.540 0.300-4.500 uIu/ml Microbiology Results 01/06/17 Gram Stain - Final, Resulted 01/06/17 Sputum Culture - Preliminary, Resulted MODERATE NORMAL DRAKE Present, Final ...
[2017-01-07] MEDS ORDERED: SPRIN INH (12:39)
[2017-01-07] MEDS ORDERED: PRED10TA PO (12:39)
[2017-01-07] MEDS ORDERED: VNTHFA/IN INH (12:39)
[2017-01-07] MEDS ORDERED: LSN5 PO (12:39)
[2017-01-07] MEDS ORDERED: DXY100 PO (12:39)
--- NOTE | 2017-01-07 12:41 | Discharge Summary ---
Discharge Summary Date of Service Jan 07, 2017. Discharge Summary Admission Date: Jan 06, 2017 at 02:19 Discharge Date: Jan 07, 2017 Discharge Disposition: Home Principal Diagnosis: Acute bronchitis Procedures: CXR: : Hyperinflation. No evidence of focal pulmonary consolidation ECHO: * The left ventricle is normal in size. * Left ventricular systolic function is normal. * Ejection Fraction = >70 %. * The right ventricular systolic function is normal. * The left atrial size is normal. * Right atrial size is normal.No significnat valvular pathology. Grossly normal valvular structure and function Consultations: Pulmonary Pending Studies/Follow-Up: Follow up with on 01/10 at 10.45 AM at [facility] Office Complete the antibiotic and steroid course as prescribed Get repeat Thyroid function tests as outpatient in 4-6 weeks as advised Get Pulmonary function test and enrollment into the lung cancer screening program as outpatient Seek immediate medical attention if your symptoms reoccur or worsen Quit smoking as advised Medication Reconciliation New Medications: Albuterol Hfa (Ventolin Hfa) 200 Puffs/55529 Mcg Aers 2-4 PUFFS INH Q6H PRN for SOB/Wheezing, #1 INHALER Doxycycline Hyclate (Doxycycline Hyclate) 100 Mg Cap 100 MG PO BID for 5 Days, #10 CAP Prednisone Tab (Prednisone) 10 Mg Tab 10 MG PO UD for 8 Days, #13 TAB Start taking 30mg for 2 days, then 20mg for 2 days, then 10mg for 2 days, then 5mg for 2 days and stop Tiotropium [place] (Spiriva Handihaler) 5 Puff/90 Mcg Aerp 2 PUFFS INH DAILY for 30 Days, #1 INHALER 1 Refill Lisinopril (Lisinopril) 5 Mg Tab 2.5 MG PO QAM for 30 Days, #15 TAB Admission Information HPI (per Admitting provider): CHIEF COMPLAINT: Shortness of breath. HISTORY OF PRESENT ILLNESS: History obtained from patient and ER physician. Medical history significant for borderline hypertension as per patient, ongoing tobacco abuse. Patient moved back to [place] in 2015. He was in [place], [place] for about 20 years prior. Few days history of nasal congestion, scratchy throat, cough productive of green sputum. Denies aspiration, fever at home, increasing shortness of breath. No chest pain. Denies fluid retention. Of note, shortness of breath on exertion, in the last few months. EMS gave patient Solu-Medrol for possible COPD exacerbation on route to the hospital. At the Emergency Room, patient received Levaquin and breathing treatments. Hospital Course Acute Bronchitis Could have underling COPD Ongoing Tobacco use CXR: no consolidation Continue Abx, prednisone, bronchodilators ECHO:as below Venous Doppler: No DVT Needs PFTs as outpatient Appreciate Pulmonary Input Oxygen support PRN Blood/Septum cultures: Negative HTN: Continue Lisinopril Monitor Asymptomatic Ongoing Tobacco use: Nicotine patch family life counselor to quit smoking ? Subclinical Hypothyroidism: TSH: 8.3>>>6.5 Free T4: normal Needs repeat Thyroid function test as outpatient DVT px: Lovenox subQ. Code Status: Full code DISPOSITION: Plan to discharge home today Follow up with on 01/10 at 10.45 AM at [facility] Office Complete the antibiotic and steroid course as prescribed Get repeat Thyroid function tests as outpatient in 4-6 weeks as advised Get Pulmonary function test and enrollment into the lung cancer screening program as outpatient Seek immediate medical attention if your symptoms reoccur or worsen Quit smoking as advised PROCEDURES: ECHO: * The left ventricle is normal in size. * Left ventricular systolic function is normal. * Ejection Fraction = >70 %. * The right ventricular systolic function is normal. * The left atrial size is normal. * Right atrial size is normal.No significnat valvular pathology. * Grossly normal valvular structure and function. Total time spent on discharge = 35 minutes This includes examination of the patient, discharge planning, medication reconciliation, and communication with other providers. Discharge Instructions Discharge Instructions Date of Service Jan 07, 2017. Admission Reason for Admission: Respiratory Failure, Acute Discharge Discharge Diagnosis / Problem: Acute bronchitis Discharge Goals Goal(s): Decrease discomfort, Improve function Activity Recommendations Activity Limitations: resume your previous activity Exercise/Sports Limitations: as tolerated . Instructions / Follow-Up Instructions / Follow-Up Follow up with on 01/10 at 10.45 AM at [facility] Complete the antibiotic and steroid course as prescribed Get repeat Thyroid function tests as outpatient in 4-6 weeks as advised Get Pulmonary function test and enrollment into the lung cancer screening program as outpatient Seek immediate medical attention if your symptoms reoccur or worsen Quit smoking as advised Current Hospital Diet Patient's current hospital diet: AHA Diet (Heart Healthy) Discharge Diet Recommended Diet: AHA Diet (Heart Healthy) Pending Studies Studies pending at discharge: no Medical Emergencies . Who to Call and When: Medical Emergencies: If at any time you feel your situation is an emergency, please call 911 immediately. . Non-Emergent Contact Non-Emergency issues call your: Primary Care Provider Call Non-Emergent contact if: you have a fever, your pain is not controlled, your pain is worsening, your pain is unusual for you, your pain is concerning you, you have any medication questions Seek immediate medical attention if your symptoms reoccur or worsen including cough, shortness of breath . . "Provider Documentation" section prepared by Boyd High. . VTE Core Measure Inpt VTE Proph given/why not?: Enoxaparin (Lovenox)SQ <Electronically signed by Boyd High MD> Signed: 01/07/17 1241 Signed: The status of this report is Signed * If report status is Draft, the document has not been finalized by the responsible provider.
[2017-01-07 12:50] VITALS: BP 126/73; PULSE 95; TEMP 36.3; O2SAT 93
== END 2017-01-07 13:52 | disposition home or self-care (01) | DRG 192 ==
LOC: C.EDB 00:22 → C.2T 02:19 → ENRESERV 02:26
PROVIDERS: ADMIT Internal Medicine; ATTEND Internal Medicine
DX: J44.0 Chronic obstructive pulmonary disease with (acute) lower respiratory infection (principal); J20.9 Acute bronchitis, unspecified; F17.200 Nicotine dependence, unspecified, uncomplicated; I10 Essential (primary) hypertension; E03.9 Hypothyroidism, unspecified; Z83.3 Family history of diabetes mellitus